=== PATIENT | female | born 1945 | race African-American/Black ===

== ENCOUNTER → 2020-11-15 | Outpatient (CLI) | payer MEDICARE | END | disposition home or self-care (01) | LOC: EDUNIT# 10:00 → US 10:50 | PROVIDERS: ATTEND Internal Medicine Nephrology | DX: N28.1 Cyst of kidney, acquired (principal); R80.9 Proteinuria, unspecified | CPT/HCPCS: 76770 ==

== ENCOUNTER 2023-05-08 11:10 | Emergency (ER) | payer MEDICARE, MEDICAID ==
[~2023-05-08] VITALS: Ht 165.1 cm; Wt 47.0 kg
[~2023-05-08 11:10] MED LIST: ASPI-1406 MT; FERR325T6 MT; METO25TA6 MT; MONT-46 MT
[2023-05-08 11:15] VITALS: BP 134/86; PULSE 66; RESP 19; TEMP 98.6; O2SAT 98
[2023-05-08 12:45] LABS: BASOPHILS % 1.1 % (0.0-2.0); DIFFERENTIAL COMMENT 0; EOSINOPHILS % 2.3 % (0.0-5.0); HEMOGLOBIN. 12.2 g/dL (12.0-16.0); LYMPHOCYTES % 37.8 % (20.0-50.0); MEAN CORPUSCULAR HEMOGLOBIN 22.8 pg (28.0-32.0); MEAN CORPUSCULAR HGB CONC 32.1 g/dL (31.0-37.0); MEAN CORPUSCULAR VOLUME 70.8 fL (81.0-99.0); MEAN PLATELET VOLUME 8.7 fl (7.4-10.4); MONOCYTES % 7.4 % (2.0-8.0); NEUTROPHILS % 51.4 % (40.0-76.0); PLATELET 225 x1000/uL (130-400); RED BLOOD CELL COUNT 5.37 mill/uL (4.2-5.4); RED CELL DISTRIBUTION WIDTH 15.8 % (11.6-14.6); WHITE BLOOD COUNT 5.6 x1000/uL (4.5-11.0)
[2023-05-08 13:08] LABS: CHLORIDE 110 mEq/L (98-107); INDEX HEMOLYSI 1 (1-3); INDEX ICTERIC 1 (1-4); INDEX LIPEMIC 1 (1-3); POTASSIUM 3.2 mEq/L (3.5-5.1); SODIUM 140 mEq/L (136-145)
[2023-05-08 13:16] LABS: ALANINE AMINOTRANSFERASE 11 IU/L (13-61); ALBUMIN 3.1 g/dL (3.4-5.0); ASPARTATE AMINOTRANSFERASE 15 IU/L (15-37); BILIRUBIN TOTAL 0.7 mg/dL (0.1-1.0); CALCIUM 8.9 mg/dL (8.5-10.1); CARBON DIOXIDE 25 mEq/L (21-32); CREATININE 0.9 mg/dL (0.6-1.3); GLUCOSE 78 mg/dL (70-105); PROTEIN TOTAL 7.3 g/dL (6.0-8.3); UREA NITROGEN BLOOD 12 mg/dL (7-21)
== END 2023-05-08 14:29 | disposition home or self-care (01) ==
LOC: ER 11:10
DX: K62.5 Hemorrhage of anus and rectum (principal); E78.00 Pure hypercholesterolemia, unspecified; I10 Essential (primary) hypertension; J44.9 Chronic obstructive pulmonary disease, unspecified; Z90.710 Acquired absence of both cervix and uterus; Z98.890 Other specified postprocedural states
CPT/HCPCS: 36415; 80053; 85025; 86850; 86900; 99283

== ENCOUNTER 2023-08-28 12:59 | Emergency (ER) | payer MEDICARE, MEDICAID ==
[~2023-08-28] VITALS: Ht 165.1 cm; Wt 49.0 kg
[2023-08-28 13:02] VITALS: O2SAT 99
[2023-08-28 13:33] LABS: CLARITY URINE CLEAR (CLEAR); COLOR URINE YELLOW (YELLOW); GLUCOSE URINE NEGATIVE (NEGATIVE); KETONES URINE NEGATIVE (NEGATIVE); LEUKOCYTE ESTERASE URINE NEGATIVE (NEGATIVE); NITRITE URINE NEGATIVE (NEGATIVE); OCCULT BLOOD URINE NEGATIVE (NEGATIVE); PROTEIN URINE 2+ (NEGATIVE); SPECIFIC GRAVITY URINE 1.019 (1.005-1.030)
[2023-08-28 13:52] LABS: BACTERIA URINE FEW; RBC URINE 0-2 /hpf (0-2); SQUAMOUS EPITHELIAL CELL URINE FEW /lpf (RARE/1+); YEAST URINE NONE SEEN
[2023-08-28 14:18] LABS: BASOPHILS % 0.8 % (0.0-2.0); DIFFERENTIAL COMMENT 0; HEMATOCRIT. 35.5 % (36.0-48.0); HEMOGLOBIN. 11.5 g/dL (12.0-16.0); LYMPHOCYTES % 21.1 % (20.0-50.0); MEAN CORPUSCULAR HEMOGLOBIN 23.6 pg (28.0-32.0); MEAN CORPUSCULAR HGB CONC 32.3 g/dL (31.0-37.0); MEAN CORPUSCULAR VOLUME 73.2 fL (81.0-99.0); MONOCYTES % 7.9 % (2.0-8.0); NEUTROPHILS % 69.2 % (40.0-76.0); PLATELET 291 x1000/uL (130-400); RED BLOOD CELL COUNT 4.86 mill/uL (4.2-5.4); RED CELL DISTRIBUTION WIDTH 15.4 % (11.6-14.6); WHITE BLOOD COUNT 6.6 x1000/uL (4.5-11.0)
[2023-08-28 15:53] LABS: ALANINE AMINOTRANSFERASE 8 IU/L (10-49); ALBUMIN 3.9 g/dL (3.2-4.8); ASPARTATE AMINOTRANSFERASE 12 IU/L (<34); BILIRUBIN TOTAL 0.6 mg/dL (0.1-1.0); CALCIUM 8.9 mg/dL (8.7-10.4); CARBON DIOXIDE 25 mEq/L (21-32); CHLORIDE 109 mEq/L (98-107); CREATININE 0.8 mg/dL (0.6-1.0); GLUCOSE 86 mg/dL (70-105); POTASSIUM 3.7 mEq/L (3.5-5.1); PROTEIN TOTAL 7.1 g/dL (6.0-8.3); SODIUM 142 mEq/L (136-145); TROPONIN I HIGH SENSITIVITY 5 ng/L (3.0-34); UREA NITROGEN BLOOD 15 mg/dL (9-23)
[2023-08-28 17:20] VITALS: BP 158/91; PULSE 85; RESP 18; TEMP 98.7
== END 2023-08-28 15:30 | disposition home or self-care (01) ==
LOC: ER 12:59
DX: R55 Syncope and collapse (principal); J44.9 Chronic obstructive pulmonary disease, unspecified; E78.00 Pure hypercholesterolemia, unspecified; I10 Essential (primary) hypertension; Z90.710 Acquired absence of both cervix and uterus; Z98.890 Other specified postprocedural states
CPT/HCPCS: 36415; 80053; 81003; 82962; 84484; 85025; 99284

== ENCOUNTER 2024-04-06 09:43 | Emergency (ER) | payer MEDICARE, MEDICAID ==
[~2024-04-06] VITALS: Ht 165.1 cm; Wt 45.3 kg
[2024-04-06 09:46] VITALS: O2SAT 98
[2024-04-06 09:59] VITALS: BP 166/104; PULSE 58; RESP 18; TEMP 98.3; O2SAT 99
== END 2024-04-06 15:58 | disposition home or self-care (01) ==
LOC: ER 10:00
DX: K40.90 Unilateral inguinal hernia, without obstruction or gangrene, not specified as recurrent (principal); I10 Essential (primary) hypertension; E78.00 Pure hypercholesterolemia, unspecified; J44.1 Chronic obstructive pulmonary disease with (acute) exacerbation; Z90.710 Acquired absence of both cervix and uterus
CPT/HCPCS: 99281

== ENCOUNTER 2024-07-18 13:43 | Emergency (ER) | payer MEDICARE, MEDICAID ==
[~2024-07-18] VITALS: Ht 165.1 cm; Wt 48.1 kg
[2024-07-18 13:49] VITALS: O2SAT 98
[2024-07-18 13:54] VITALS: BP 165/113; PULSE 91; RESP 16; TEMP 98.2; O2SAT 96
[2024-07-18] MEDS ORDERED: LIDO700A30 TP (18:41)
[2024-07-18] MEDS ORDERED: METH-653 MT (18:41)
[2024-07-18] MEDS: KETOROLAC 30MG/ML VIAL IM ONE (18:56)
== END 2024-07-18 18:57 | disposition home or self-care (01) ==
LOC: ER 13:43
DX: S33.5XXA Sprain of ligaments of lumbar spine, initial encounter (principal); E78.00 Pure hypercholesterolemia, unspecified; F41.0 Panic disorder [episodic paroxysmal anxiety]; I10 Essential (primary) hypertension; J44.9 Chronic obstructive pulmonary disease, unspecified; Z79.82 Long term (current) use of aspirin; Z79.899 Other long term (current) drug therapy; Z90.710 Acquired absence of both cervix and uterus; W19.XXXA Unspecified fall, initial encounter; Y93.89 Activity, other specified; Y92.89 Other specified places as the place of occurrence of the external cause; Y99.8 Other external cause status
CPT/HCPCS: 72100; 99283